=== PATIENT | female | born 1960 | race Caucasian/White ===

== ENCOUNTER → 2023-08-23 16:26 | Outpatient (REF) | payer MEDICARE, SELFPAY | LOC: WDC 16:26 | PROVIDERS: ATTENDING PHYSICIAN Obstetrics & Gynecology; FAMILY PHYSICIAN Family Medicine | DX: Z12.31 Encounter for screening mammogram for malignant neoplasm of breast (principal) | CPT/HCPCS: 77063; 77067 ==

== ENCOUNTER → 2023-11-16 13:16 | Outpatient (REF) | payer MEDICARE, SELFPAY | LOC: HWRAD 13:16 | PROVIDERS: ATTENDING PHYSICIAN Urology; FAMILY PHYSICIAN Family Medicine | DX: N13.30 Unspecified hydronephrosis (principal); N20.0 Calculus of kidney | CPT/HCPCS: 76775 ==

== ENCOUNTER → 2024-03-22 15:36 | Outpatient (REF) | payer MEDICARE, SELFPAY | LOC: RAD 15:36 | PROVIDERS: ATTENDING PHYSICIAN Internal Medicine; FAMILY PHYSICIAN Family Medicine | DX: J45.20 Mild intermittent asthma, uncomplicated (principal) | CPT/HCPCS: 71046 ==

== ENCOUNTER 2024-03-28 13:38 | Emergency (ER) | payer MEDICARE, SELFPAY ==
[2024-03-28 13:43] VITALS: BP 161/98
[2024-03-28 14:11] LABS: % Basophils 0.5 % (0-2); % Eosinophils 1.2 % (0-6); % Immature Granulocytes 0.5 % (0-0.5); % Lymphocytes 34.3 % (20.5-51.1); % Monocytes 9.3 % (1.7-9.3); % Neutrophils 54.2 % (42.2-75.2); Absolute Eosinophils 0.1 10^3/uL (0-0.7); Absolute Lymphocytes 2.5 10^3/uL (1.2-3.4); Absolute Monocytes 0.7 10^3/uL (0.1-0.6); Hematocrit 38.7 % (37.0-47.0); Mean Corp Hgb Conc. 33.6 g/dL (33.0-37.0); Mean Corpuscular Hgb 28.3 pg (27.0-31.0); Mean Corpuscular Volume 84.1 fL (81.0-99.0); Mean Platelet Volume 9.5 fL (7.4-10.4); Nucleated Red Blood Cells % 0 %; Platelet Count 288 10^3/uL (130-400); Red Cell Dist. Width 12.8 % (11.5-14.5); White Blood Cell Count 7.3 10^3/uL (4.8-10.8)
[2024-03-28 14:32] LABS: Troponin I < 0.012 ng/ml
[2024-03-28 14:33] LABS: ALT (SGPT) 41 U/L (0-35); AST (SGOT) 23 U/L (14-36); Albumin 4.5 g/dl (3.5-5.0); Alkaline Phosphatase 54 U/L (38-126); Blood Urea Nitrogen 30 mg/dl (7-17); Calcium 9.9 mg/dl (8.4-10.2); Carbon Dioxide 21 mmol/L (22-30); Chloride 109 mmol/L (98-107); Glucose 108 mg/dl (70-99); Potassium 4.1 mmol/L (3.5-5.1); Sodium 146 mmol/L (135-145); Total Bilirubin 0.5 mg/dl (0.2-1.3); Total Protein 7.3 g/dl (6.3-8.2); eGFR > 60.00
--- NOTE | 2024-03-28 14:40 | ED.GENMED ---
History of Present Illness
General
Chief Complaint: Breathing Problem
Source: patient
Exam Limitations: none
Time Seen by Provider: 03/28/24 14:15
Nursing documentation reviewed up to this point in time: agreed with
History of Present Illness
History of Present Illness:
Patient is a 63-year-old female with a history of hypertension, hyperlipidemia, asthma mild intermittent followed by an asthma and it training specialist who presents for 2-criss weeks of URI symptoms. She was exposed to her granddaughter who had croup
and then developed pneumonia the week before her symptoms started. Around 10�9 or 10 patient started having some increased wheezing and cough. On she called her asthma and allergy doctor who called her in a Z-Jez. Patient was starting to
have some productivity of her cough and was feeling a little short of breath and spoke with them again a few days later and they ordered a chest x-ray which suggested the patient has COPD which she never has been told of before. Patient started a
Medrol Dosepak on which she just completed this morning and has been taking guaifenesin and a cough medication which she also completed. She had follow-up with them today in the office and patient apparently 'was sounding very junky'. She
used her inhaler which cleared up her lungs but the asthma and allergy doctor sent her to the ER for further workup. They were not sure if maybe she would need another round of steroids or antibiotics or repeat chest x-ray. Patient does feel
little bit dyspneic with conversation. She is not having any fever, chills, leg swelling, pleuritic chest pain, exertional chest pain, GI symptoms. Patient previously has been intolerant to higher doses of steroids which drive her blood pressure
way
Past History
Past History
ED Past Medical History: Asthma, Cancer (Skin), GERD, HTN, Hypercholesterolemia, Valvular disease, Psychiatric (Anxiety), Other (Kidney stones, chronic back pain, PUD, MIgraine, Sciatica herniated Disc, GI bleeding, Hep A, Ulcers, renal calculus,
Parathyroid, Angioedema, Connective tissue disease, Maulik atwood) and Other (exernal stimulator to back, Arachnoiditis, IBS)
ED Past Surgical History: , Gynecological (D&C, D&E), Orthopedic (Left knee surgery, Hernia repair, Right shoulder surgery, ) and Other (Hemorrhoidectomy)
Social History
Tobacco: Non-smoker
Alcohol: Occasional
Personal:
Living: with family
Family History
Family History: Other (Father had peptic ulcer mother of a cerebral aneurysm rupture); Negative Diabetes, Hypertension, Early CAD, Asthma or Cancer
Review of Systems
Review of Systems
Allergies reviewed?: Yes
All Other Systems: Not applicable
Phy Exam
Physical Exam
Physical Exam:
GENERAL: Alert , in no apparent distress
EYE: pupils equal and reactive
NECK: Supple
ENT: o/p clr, mmm. Some nasal mucosal thickening, ears are clear
CARDIAC: Regular rate and rhythm .
LUNGS: Minimal wheezing end expiratory, moderate cough, no respiratory distress, no tachypnea
ABDOMEN: Soft, without focal tenderness, no r/g, no cvat, normal bowel sounds
NEUROLOGICAL: Alert and oriented, no focal neuro deficits
SKIN: Warm and dry, skin intact.
MUSCULOSKELETAL: Trace nonpitting edema, well perfused. neg aravind's sign
PSYCH: Normal and appropriate interaction.
Scores
Heart Failure Risk
Heart Failure Risk Score: Not Applicable
Course
Orders/Labs/Results
Orders:
Orders
03/28/24 13:49
Chest [CR Chest - 2 Views ] Urgent
Comment:
Reason For Exam: SOB
03/28/24 13:50
EKG [Electrocardiogram (*1)] Urgent
Reason for Study: Shortness of Breath
EKG- Treatment ONCE
03/28/24 13:57
Complete Blood Count/With Diff Urgent
Comprehensive Metabolic Panel Urgent
Troponin I Urgent
03/28/24 14:40
Ipratropium/Albuterol Sulfate [Duoneb] 3 ml INH R NOW ONE
03/28/24 15:51
Prednisone [Deltasone] 40 mg PO NOW STA
Abnormal Lab Results
03/28/24
13:57
Absolute Monos (auto) 0.7 H 10^3/uL
(0.1-0.6)
Sodium 146 H mmol/L
(135-145)
Chloride 109 H mmol/L
(98-107)
Carbon Dioxide 21 L mmol/L
(22-30)
BUN 30 H mg/dl
(7-17)
Glucose 108 H mg/dl
(70-99)
ALT 41 H U/L
(0-35)
03/28/24 13:57
03/28/24 13:57
Vital Signs
Initial and Last Documented VS:
Initial Vital Signs
Temp Pulse Resp BP Pulse Ox
99.2 F 89 18 161/98 99
03/28/24 13:43 03/28/24 13:43 03/28/24 13:43 03/28/24 13:43 03/28/24 13:43
Last Documented Vital Signs
Temp Pulse Resp BP Pulse Ox
99.2 F 87 18 124/74 97
03/28/24 13:43 03/28/24 16:00 03/28/24 16:00 03/28/24 16:00 03/28/24 16:00
MDM/Problems Addressed
Differential Diagnosis Includes:
asthmatic bronchitis, pneumonia,
MDM/Problems Addressed:
63-year-old female sent from asthma and fly rail operator office for 2 weeks of a cough, wheezing, shortness of breath. Patient been exposed to her grandson kids who had croup and pneumonia. They were tested for COVID. It was negative. She also tested
herself when she became symptomatic about 2 weeks ago. She called her has been fly rail operator after a few days and he gave her a prescription for Zithromax. Patient took that but during the course of that was getting more wheezing and productivity of
her cough and was little short of breath so they called her in a Medrol Dosepak. Patient completed that today. She has a significant sensitivity to prednisone, larger doses like 40 or 60 mg will cause her blood pressure to rise. Patient says that
she was not feeling much better so she called them and was seen again today and they sent her in because of wheezing and sounding 'junky.' On exam the patient is not hypoxic, she looks in no respiratory distress. She has minimal wheezing with end
expiratory with a spastic cough. She has no edema in her legs. EKG was nonischemic, her troponin was negative. Her white count is reassuring and normal. Patient's BUN is always elevated but is slightly worse than usual. She had chest x-ray
independently reviewed by me which was negative for pneumonia. This is discussed that she likely has asthmatic bronchitis and at this point I would not give another round of antibiotics but I think she could benefit from some steroids and albuterol
neb treatments at home. After the neb here she feels better and her lungs are clear. She ambulated around the department without desatting, her sat was 93% and recovered immediately. She did not feel winded. At this point we will give her
prednisone, 20 mg for 3 days and then 10 mg for 3 days. I realize this is a low taper but she is sensitive to it. I also do recommend that she hold off on antibiotics at this point until she has had a few days of steroids unless she takes a turn
for the worse and then she can fill the prescription for doxycycline. She was already treated with azithromycin.
*Critical Care Note
Total Time (30-74mins, 75-104mins- exclusive of procedures): Not Applicable
ED Attending Note
-
Portions of this chart may have been created with voice recognition software.� Occasional wrong word or��sound alike� substitutions may have occurred due to the inherent limitations of voice recognition software.
Discharge Plan
Departure
Patient Disposition: Home (Routine Discharge)
Date of Disposition: 03/28/24
Time of Disposition: 15:59
Patient with high blood pressure during this ER visit?: No
Condition: Fair
Covid-19: Not Applicable
Discharge Problem:
Asthmatic bronchitis
Instructions: Asthma, Adult (DC), Acute Bronchitis, Adult (DC)
Prescriptions:
New
prednisone 10 mg tablet
See Rx Instructions .ROUTE .COMPLEX Qty: 9 0RF
Rx Instructions:
20 mg PO DAILY X 3 DAYS THEN 10 MG PO DAILY X 3 DAYS
doxycycline hyclate 100 mg tablet
100 mg PO BID Qty: 14 0RF
albuterol sulfate 2.5 mg /3 mL (0.083 %) solution for nebulization
2.5 mg inhalation QID PRN (Reason: bronchospasm) Qty: 90 0RF
No Action
metoprolol succinate 50 MG tablet extended release 24 hr
50 mg PO DAILY
albuterol sulfate 1 PUFF HFA aerosol inhaler
2 puff inhalation R Q4HPRN PRN (Reason: sob)
fluticasone propionate 1 SPRAY spray,suspension
1 spray intranasal DAILY
Prolia 60 MG/ML syringe
60 mg SQ [id number]
dicyclomine 10 MG capsule
10 mg PO QIDPRN PRN (Reason: bloating/pain)
epinephrine [EpiPen 2-Jez] 0.3 MG/0.3 ML auto-injector
0.3 mg IJ PRN PRN (Reason: allergic reaction)
cholecalciferol (vitamin D3) 2,000 UNITS tablet
2,000 units PO DAILY
montelukast [Singulair] 10 mg Tablet
10 mg PO HS
ezetimibe [Zetia] 10 mg Tablet
10 mg PO HS
Systane (PF) 0.4-0.3 % Dropperette
1 drp BOTH EYES QID PRN (Reason: dry eyes)
methylprednisolone 4 mg Tablet
4 mg PO TUTHSA
Rx Instructions:
[id number]
pantoprazole 40 mg Tablet,Delayed Release (Dr/Ec)
40 mg PO DAILY
celecoxib 200 mg capsule
200 mg PO BID PRN (Reason: mild pain)
ascorbic acid (vitamin C) [Vitamin C] 1,000 mg Tablet
1,000 mg PO MOWEFR
clonazepam 0.5 mg tablet
0.5 mg PO Q8H PRN (Reason: anxiety)
cyanocobalamin (vitamin B-12) [Vitamin B-12] 1,000 mcg Tablet
5,000 mcg PO MOWEFR
ketorolac 10 mg tablet
10 mg PO MOWEFR
diphenhydramine HCl [Benadryl] 25 mg Capsule
25 mg PO DAILY PRN (Reason: reaction)
Rx Instructions:
taken w/ tagamet
lactase [Lactaid] 3,000 unit Tablet
3,000 unit PO MEALS PRN (Reason: lactose intolerance)
Bcp 15
1 tab sublingual MOWEFR
Rx Instructions:
Opposite of KPV
Colostrum Pure
1,000 mg PO MOWEFR
Kpv
0.2 mg SC SUTUTHSA
Rx Instructions:
opposite of BCP 15
lidocaine 4 % Adhesive Patch,Medicated
1 patch TOPICAL DAILY PRN (Reason: back pain)
amlodipine 5 mg Tablet
5 mg PO DAILY
chorionic gonadotropin, human [Pregnyl] 10,000 unit Recon Soln
0.5 unit IM MOFR
hydrochlorothiazide 25 mg Tablet
25 mg PO DAILY PRN (Reason: elevated BP)
Rx Instructions:
SBP > 150, DBP >90
fexofenadine [Tanvi Allergy] 60 mg tablet
180 mg PO Q12H PRN (Reason: allergy)
Rx Instructions:
'seasonal'
famotidine 20 mg tablet
20 mg PO DAILY PRN (Reason: Allergies)
Rx Instructions:
taken when having angioedema
Airborne (ascorbate sodium)
1 tab PO DAILY PRN (Reason: cold sx)
Cbd
10 mg PO DAILY PRN (Reason: pain)
Rx Instructions:
cbs gummy prn 05/14 last dose, cbd tinture prn last dose 05/15
Probiotic
1 cap PO DAILY
naltrexone 1 mg
2 tab PO BID
Rx Instructions:
1-2 tabs
acetaminophen 500 mg Tablet
1,000 mg PO Q6H PRN (Reason: pain)
Referrals:
Barby Shaw MD [Family Provider] - Follow up in 2-3 days
Activity Restrictions/Additional Instructions:
YOU HAD NO FINDINGS OF NEW PNEUMONIA
THIS IS PROBABLY BRONCHITIS PLUS YOUR ASTHMA
TRY ALBUTEROL NEBULIZER EVERY 4-6 HOURS FOR WHEEZING/COUGH
PREDNISONE ONCE A DAY STARTING TOMORROW 20 MG X 3 DAYS THEN 10 MG X 3 DAYS
THIS IS A LOW TAPER BECAUSE OF YOUR PREVIOUS PROBLEMS WITH BLOOD PRESSURE
YOU SHOULD SEE A KNOT SAW OPERATOR FOR FOLLOW UP
RETURN FOR: NEW FEVER, WORSE SHORTNESS OF BREATH, PAINFUL BREATHING, EXERTIONAL CHEST PAIN, OR ANY ONCERNS.
IF YOU ARE STILL COUGHING OR FEEL WORSE, YOU CAN TART THE DOXYCYCLINE 100 MG TWICE A DAY FOR 7 DAYS
Interventions
Interventions:
*Risk Screen - Suicide Last Done: 03/28/24 13:43
*General Assessment Last Done: 03/28/24 13:43
*Neglect/Abuse Screening Last Done: 03/28/24 13:43
*ED COVID-19 Vaccine History Last Done: 03/28/24 15:45
*Nursing Disposition Last Done: 03/28/24 16:36
ED- Cardiac Assessment Last Done: 03/28/24 15:45
ED- Pulmonary Assessment Last Done: 03/28/24 15:45
Discharge Date and Time
Discharge Date/Time: 03/28/24 16:38
Print Language: THAI
[2024-03-28] MEDS: DUONEB 3 ML INH (14:54)
[2024-03-28 15:30] VITALS: BP 116/65
[2024-03-28 16:00] VITALS: BP 124/74
== END 2024-03-28 16:38 | disposition home or self-care (01) ==
LOC: EMR 13:38
PROVIDERS: Student in an Organized Health Care Education/Training Program; EMERGENCY PHYSICIAN Emergency Medicine; FAMILY PHYSICIAN Family Medicine
DX: J45.909 Unspecified asthma, uncomplicated (principal); I10 Essential (primary) hypertension; E78.00 Pure hypercholesterolemia, unspecified
CPT/HCPCS: 99285; 94640; 71046; 80053; 84484; 85025; 93005

== ENCOUNTER → 2024-04-12 06:55 | Outpatient (REF) | payer MEDICARE, SELFPAY | LOC: RSP 06:55 | PROVIDERS: ATTENDING PHYSICIAN Internal Medicine; FAMILY PHYSICIAN Family Medicine | DX: J45.30 Mild persistent asthma, uncomplicated (principal) | CPT/HCPCS: 94727; 94729; 88738; 94010 ==

== ENCOUNTER → 2024-10-08 13:33 | Outpatient (REF) | payer MEDICARE, SELFPAY | LOC: HWWDC 13:33 | PROVIDERS: ATTENDING PHYSICIAN Obstetrics & Gynecology; FAMILY PHYSICIAN Internal Medicine | DX: Z12.31 Encounter for screening mammogram for malignant neoplasm of breast (principal) | CPT/HCPCS: 77063; 77067 ==

== ENCOUNTER → 2024-10-12 14:43 | Outpatient (REF) | payer MEDICARE, SELFPAY | LOC: PAVMRI 14:43 | PROVIDERS: ATTENDING PHYSICIAN Physician Assistant Surgical; FAMILY PHYSICIAN Family Medicine | DX: M25.511 Pain in right shoulder (principal) | CPT/HCPCS: 72141; 73221 ==

== ENCOUNTER → 2024-10-18 13:02 | Outpatient (REF) | payer MEDICARE, SELFPAY | LOC: MRI 13:02 | PROVIDERS: ATTENDING PHYSICIAN Family Medicine | DX: Z13.858 Encounter for screening for other nervous system disorders (principal); Z82.49 Family history of ischemic heart disease and other diseases of the circulatory system | CPT/HCPCS: 70544 ==

== ENCOUNTER → 2024-11-28 12:31 | Outpatient (REF) | payer MEDICARE, SELFPAY | LOC: HWRAD 12:31 | PROVIDERS: ATTENDING PHYSICIAN Urology; FAMILY PHYSICIAN Family Medicine | DX: N13.30 Unspecified hydronephrosis (principal); N20.0 Calculus of kidney | CPT/HCPCS: 76775 ==

== ENCOUNTER 2025-05-23 06:32 | Day surgery (SDC) | payer MEDICARE, SELFPAY | END 2025-05-23 14:05 | disposition home or self-care (01) | LOC: GI 06:32 | PROVIDERS: ATTENDING PHYSICIAN Internal Medicine Gastroenterology | DX: Z12.11 Encounter for screening for malignant neoplasm of colon (principal); K57.30 Diverticulosis of large intestine without perforation or abscess without bleeding; K59.00 Constipation, unspecified; K64.8 Other hemorrhoids; K31.7 Polyp of stomach and duodenum; K31.89 Other diseases of stomach and duodenum; R12 Heartburn; Z13.810 Encounter for screening for upper gastrointestinal disorder | CPT/HCPCS: 43239; G0105; 88305; 88342 ==

== ENCOUNTER 2025-06-04 06:31 | Outpatient (RCR) | payer MEDICARE, SELFPAY | END 2025-06-04 23:59 | disposition home or self-care (01) | LOC: RPT 06:31 | PROVIDERS: ATTENDING PHYSICIAN Internal Medicine Gastroenterology; FAMILY PHYSICIAN Family Medicine | DX: K58.1 Irritable bowel syndrome with constipation (principal); N39.41 Urge incontinence; N39.3 Stress incontinence (female) (male); Z73.6 Limitation of activities due to disability; M62.81 Muscle weakness (generalized); N94.10 Unspecified dyspareunia; N81.4 Uterovaginal prolapse, unspecified; K57.92 Diverticulitis of intestine, part unspecified, without perforation or abscess without bleeding | CPT/HCPCS: 97163; 97530 ==